=== PATIENT | male | born 1985 ===

== ENCOUNTER 2018-05-16 20:26 | Emergency (ER) | payer OTHER ==
--- NOTE | 2018-05-16 21:09 | C.PDOC ---
History Of Present Illness 32 y/o male c/o one week of sore throat with painful swallowing. no cough, fever , chills or ear pain. no sick contacts. Time Seen by Provider: 05/16/18 21:01 Chief Complaint (Nursing): ENT Problem History Per: Patient History/Exam Limitations: None Onset/Duration Of Symptoms: Days (7) Current Symptoms Are (Timing): Still Present Quality (Mouth/Throat): Swelling, Redness Symptoms Have Been: Continuous Severity: Moderate Past Medical History Reviewed: Historical Data, Nursing Documentation, Vital Signs Vital Signs: Last Vital Signs Temp 98.6 F 05/16/18 20:43 Pulse 71 05/16/18 20:43 Resp 18 05/16/18 20:43 BP 150/86 05/16/18 20:43 Pulse Ox 96 05/16/18 21:59 - Medical History PMH: Hyperlipidemia Surgical History: Appendectomy Family History: States: Unknown Family Hx - Social History Hx Tobacco Use: Yes Hx Alcohol Use: Yes Hx Substance Use: Yes - Immunization History Hx Tetanus Toxoid Vaccination: No Hx Influenza Vaccination: Yes Hx Pneumococcal Vaccination: No Review Of Systems Constitutional: Negative for: Fever, Chills ENT: Positive for: Throat Pain, Throat Swelling. Negative for: Ear Pain, Nose Pain, Nose Discharge Cardiovascular: Negative for: Chest Pain Respiratory: Negative for: Cough Skin: Negative for: Rash Neurological: Negative for: Weakness, Numbness Physical Exam - Physical Exam Appears: Non-toxic, No Acute Distress Skin: Warm, Dry Head: Atraumatic, Normacephalic Eye(s): bilateral: Normal Inspection Nose: No Discharge Oral Mucosa: Moist Tongue: Normal Appearing, No Swelling Lips: Normal Appearing, No Swelling Teeth: Normal Dentition Gingiva: Normal Appearing Throat: Erythema (mild bilateral ), No Exudate, No Mass Neck: No Midline Cervical Tenderness, Supple Lymphatic: Adenopathy (mild tender b/l submandibular nodes) Cardiovascular: Rhythm Regular, No Murmur Respiratory: No Decreased Breath Sounds, No Wheezing Neurological/Psych: Oriented x3, Normal Speech, Normal Cognition ED Course And Treatment O2 Sat by Pulse Oximetry: 96 Medical Decision Making Medical Decision Making: sore throat x 1 week- check for strep, analgesics. Disposition Counseled Patient/Family Regarding: Diagnosis, Need For Followup - Disposition Referrals: Non [facility] Provider, [Non-Staff] - Disposition: HOME/ ROUTINE Disposition Time: 21:56 Condition: GOOD Additional Instructions: Gargle with warm salty water; tylenol or motrin for pain. Follow up with your doctor or ent. Instructions: Sore Throat, Adult (DC) Forms: [facility] (Kiswahili), General Discharge Instructions - Clinical Impression Clinical Impression: Tonsillitis
[2018-05-16 21:11] VITALS: BP 150/86; PULSE 71; RESP 18; TEMP 98.6; O2SAT 96
== END 2018-05-16 22:11 | disposition home or self-care (01) ==
LOC: C.ER 20:26
DX: J03.90 Acute tonsillitis, unspecified (principal)

== ENCOUNTER 2018-05-17 08:24 | Emergency (ER) | payer SELFPAY ==
[2018-05-17 08:29] VITALS: RESP 18; O2SAT 99
[2018-05-17] MEDS ORDERED: Dexamethasone 4 mg/1 ml IM STA (09:03)
--- NOTE | 2018-05-17 09:03 | C.PDOC ---
History Of Present Illness 32 y/o male presents to the ER reporting that he has sore throat for the past 1 week. Patient states that he was seen and treated yesterday, 05/16/18 for similar symptoms. However, he states that pain has become worse prompting his visit to the ER today. Denies having fever, cough, runny nose, rash, vomiting, CP, SOB, and recent travel. Time Seen by Provider: 05/17/18 08:47 Chief Complaint (Nursing): ENT Problem History Per: Patient History/Exam Limitations: None Onset/Duration Of Symptoms: Days Current Symptoms Are (Timing): Still Present Severity: Moderate Past Medical History Reviewed: Historical Data, Nursing Documentation, Vital Signs Vital Signs: Last Vital Signs Temp 98.1 F 05/17/18 08:27 Pulse 96 H 05/17/18 08:27 Resp 18 05/17/18 08:27 BP 183/129 H 05/17/18 08:27 Pulse Ox 99 05/17/18 09:56 - Medical History PMH: Hyperlipidemia Surgical History: Appendectomy Family History: States: No Known Family Hx - Social History Hx Tobacco Use: Yes Hx Alcohol Use: Yes Hx Substance Use: Yes - Immunization History Hx Tetanus Toxoid Vaccination: No Hx Influenza Vaccination: Yes Hx Pneumococcal Vaccination: No Review Of Systems Except As Marked, All Systems Reviewed And Found Negative. Constitutional: Negative for: Fever, Chills ENT: Positive for: Throat Pain. Negative for: Nose Discharge Respiratory: Negative for: Cough Gastrointestinal: Negative for: Vomiting Skin: Negative for: Rash Physical Exam - Physical Exam Appears: Non-toxic, No Acute Distress Skin: Normal Color, Warm, Dry, No Rash Head: Atraumatic, Normacephalic Eye(s): bilateral: Normal Inspection Ear(s): Bilateral: Normal Nose: Normal Oral Mucosa: Moist Throat: No Erythema, No Exudate, No Drooling, Other ((+) uvula swelling, (-) uvula deviation, (-) uvula abscess) Neck: Normal ROM, Supple Chest: Symmetrical Cardiovascular: Rhythm Regular Respiratory: Normal Breath Sounds, No Rales, No Rhonchi, No Wheezing Gastrointestinal/Abdominal: Normal Exam, Soft, No Tenderness, No Guarding, No Rebound Extremity: Normal ROM, No Swelling Neurological/Psych: Oriented x3, Normal Speech Gait: Steady ED Course And Treatment O2 Sat by Pulse Oximetry: 99 (RA) Pulse Ox Interpretation: Normal Medical Decision Making Medical Decision Making: Old Medical Records Reviewed. Patient was seen on 05/16/18 for similar symptoms. Patient had a negative strep test and was discharged. Plan: --Decadron IM --Motrin PO Disposition - Disposition Referrals: [facility] [Outside] Disposition: HOME/ ROUTINE Disposition Time: 09:56 Condition: GOOD Additional Instructions: Follow up with the medical doctor/clinic within 1-2 days without fail. Return if worsened. Prescriptions: Amoxicillin/Clavulanate [Augmentin 875 MG-125 MG] 1 tab PO BID #14 tab Ibuprofen [Motrin] 600 mg PO TID #21 tab Instructions: Sore Throat, Adult (DC) Forms: [employer] (Guatemalan) - Clinical Impression Clinical Impression: Uvulitis - PA / [employer] / Resident Statement MD/DO has reviewed & agrees with the documentation as recorded. - Scribe Statement The provider has reviewed the documentation as recorded by the Rosita Reaves Provider Attestation All medical record entries made by the Chesteribwilfredo were at my direction and personally dictated by me. I have reviewed the chart and agree that the record accurately reflects my personal performance of the history, physical exam, medical decision making, and the department course for this patient. I have also personally directed, reviewed, and agree with the discharge instructions and disposition.
[2018-05-17 10:07] VITALS: BP 142/81; PULSE 82; TEMP 98.4
== END 2018-05-17 10:05 | disposition home or self-care (01) ==
LOC: C.ER 08:24
DX: K12.2 Cellulitis and abscess of mouth (principal); E78.5 Hyperlipidemia, unspecified; Z72.0 Tobacco use
CPT/HCPCS: 96372; 99283; J1100